=== PATIENT | female | born 1990 | race Caucasian/White ===

== ENCOUNTER 2018-09-15 16:35 | Emergency (ER) | payer MEDICAID ==
[~2018-09-15] VITALS: Wt 65.1 kg
[2018-09-15 16:38] VITALS: BP 115/65; PULSE 84; RESP 18
[2018-09-15] MEDS ORDERED: ACETAMINOPHEN 325 MG TAB PO STA (17:19)
--- NOTE | 2018-09-15 17:28 | ERD ---
ER Documentation Chief Complaint Chief Complaint 8 WKS PREG VAG BLEED SINCE THIS MORNING WITH LOW ABD PAIN. SOME NAUSEA HPI This is a 28-year-old patient who presents to the emergency room with complaint of dark red vaginal bleeding this morning, no current active bleeding, approx 8 weeks . States she had spotting 2-3 times today. OB sent her to the hospital. Denies fevers, no nausea, vomiting, diarrhea. No complications with prior . Well appearing, nad. LMP 07/20/18 AUBREE 04/25/19 ROS All systems reviewed and are negative except as per history of present illness. Allergies Allergies: Coded Allergies: No Known Allergies (Verified Allergy, Unknown, 06/01/08) PMhx/Soc Medical and Surgical Hx: pt denies Medical Hx FmHx Family History: No diabetes, No coronary disease, No other Physical Exam Vitals Vital Signs Date Temp Pulse Resp B/P (MAP) Pulse Ox O2 O2 Flow FiO2 Time Delivery Rate 09/15/18 98.1 84 18 115/65 99 16:38 (82) Physical Exam Const: No acute distress Head: Atraumatic Eyes: Normal Conjunctiva, PERRL ENT: Normal External Ears, Nose and Mouth. Neck: Full range of motion. No meningismus. Resp: Clear to auscultation bilaterally Cardio: Regular rate and rhythm, no murmurs Abd: Soft, tender @ RLQ, non distended. Normal bowel sounds Skin: No petechiae or rashes Back: No midline or flank tenderness, no CVT Ext: No cyanosis, or edema Neur: Awake and alert Psych: Normal Mood and Affect Result Diagram: 09/15/18 2208 Results 24 hrs Laboratory Tests Test 09/15/18 17:25 09/15/18 17:28 Urine Color YELLOW Urine Clarity CLEAR Urine pH 6.0 Urine Specific [place] 1.023 Urine Ketones NEGATIVE mg/dL Urine Nitrite NEGATIVE mg/dL Urine Bilirubin NEGATIVE mg/dL Urine Urobilinogen NEGATIVE mg/dL Urine Leukocyte Esterase NEGATIVE Yon/ul Urine Hemoglobin NEGATIVE mg/dL Urine Glucose NEGATIVE mg/dL Urine Total Protein NEGATIVE mg/dl White Blood Count 11.0 10^3/ul Red Blood Count 3.51 10^6/ul Hemoglobin 11.2 g/dl Hematocrit 33.3 % Mean Corpuscular Volume 94.9 fl Mean Corpuscular Hemoglobin 31.9 pg Mean Corpuscular Hemoglobin Concent 33.6 g/dl Red Cell Distribution Width 12.6 % Platelet Count 258 10^3/UL Mean Platelet Volume 10.1 fl Immature Granulocytes % 0.400 % Neutrophils % 67.5 % Lymphocytes % 25.5 % Monocytes % 5.6 % Eosinophils % 0.5 % Basophils % 0.5 % Nucleated Red Blood Cells % 0.0 /100WBC Immature Granulocytes # 0.040 10^3/ul Neutrophils # 7.5 10^3/ul Lymphocytes # 2.8 10^3/ul Monocytes # 0.6 10^3/ul Eosinophils # 0.1 10^3/ul Basophils # 0.1 10^3/ul Nucleated Red Blood Cells # 0.0 10^3/ul Beta HCG, Quantitative 361896.0 mIU/ml Current Medications Medications Dose Sig/Robin Start Time Status Last (Trade) Ordered Route PRN Stop Time Admin Dose Reason Admin 650 mg ONCE STAT 09/15/18 DC 09/15/18 Acetaminophen PO 17:19 17:26 (Tylenol 09/15/18 17:22 Tab) Procedures/MDM This is a 28-year-old female patient who presents to the emergency room with complaint of vaginal bleeding today. Patient is . ED COURSE: The patient was stable throughout ED course. I kept the patient and/or family informed of laboratory and diagnostic imaging results throughout the ED course. DIAGNOSTIC IMAGING: Single live intrauterine with an estimated gestational age of 8 weeks 1 day. This yields an estimated due date of 04/26/2019, concordant with menstrual dates. Read by radiologist. MEDICATIONS GIVEN: Tylenol Patient tolerated medication well with no adverse reactions. Patient reported improvement in pain. MDM: Patient's bleeding symptoms have stabilized while in the department. This patient is experiencing bleeding in early . Exam results negative for UTI, infection, anemia, ABO mismatch. HCG consistent with reported gestation. No evidence of symptomatic anemia, ectopic , sepsis, or surgical abdomen. Extensive discussion with family and patient that occult disease or threatened cannot be ruled out. Patient to follow up with [facility] tomorrow for re-examination. All lab work and US results provided. DISPOSITION: The patient has been discharge home to follow-up with community physician. Departure Diagnosis: Primary Impression: Vaginal bleeding in patient at less than 20 weeks gestation Condition: Stable Patient Instructions: Possible Miscarriage (Threatened ) Referrals: [facility] Additional Instructions: Thank you very much for allowing us to participate in your care. Your health and safety is our top priority at [facility]. Call your primary care doctor TOMORROW for an appointment during the next 2-4 days and bring all the information and medications prescribed. Have prescriptions filled and follow precisely the directions on the label. If the symptoms get worse and your provider is unavailable, return to the Emergency Department immediately. PRATIBHA LAMA NP Sep 15, 2018 17:28
== END 2018-09-15 20:25 | disposition home or self-care (01) ==
LOC: FTE 16:35
DX: O20.9 Hemorrhage in early pregnancy, unspecified (principal); Z3A.08 8 weeks gestation of pregnancy
CPT/HCPCS: 76801; 81003; 84702; 85025; 86900; 86901; Z7502; Z7610